=== PATIENT | female | born 1980 | race Caucasian/White ===

== ENCOUNTER 2021-11-16 05:46 | Emergency (ER) | payer OTHER ==
[~2021-11-16 05:46] MED LIST: AMOXICILLIN500 MG PO; ATARAX25 MG PO; CLARITIN10 MG PO; CLEOCIN300 MG PO; DEXAMETHASONE 2M2 MG PO; ELAVIL50 MG PO; FLEXERIL10 MG PO; FLOVENT HF120 PUFFS/; GABAPENTIN300 MG PO; INDERAL20 MG PO; LAMICTAL100 MG PO; LATUDA40 MG PO; LIDODERM 5%1 EACH TOP; LYRICA 50MG CAP50 MG PO; METFORMIN HCL500 MG PO; OS-CAL500 MG PO; PAMELOR25 MG PO; POWER C PO; SINGULAIR10 MG PO; SKELAXIN800 MG PO; SYMBICORT 80-10.2 GM INH; TESSALON PERLE100 MG PO; TOPAMAX50 MG PO; VENTOLIN HFA IN18 GM INH; VITAMIN B-121000 MC1 PO; VITAMIN B-121000 MC1 SC; VITAMIN D250000 UNIT PO; VITAMIN D31 ML PO; VOLTAREN **OUT75 MG PO; ZANTAC150 MG PO; ZOFRAN4 MG PO; ZOVIRAX200 MG PO; ZYRTEC10 M3 PO
[2021-11-16 06:21] LABS: BASOPHIL 0.7 % (0-2); EOSINOPHIL 1.1 % (0-5); HCT 43.1 % (37.0-47.0); HGB 14.7 g/dl (12.5-16.0); LYMPHOCYTE 33.4 % (15-48); MCH 31.3 pg (25.0-31.0); MCHC 34.1 g/dL (32.0-36.0); MCV 91.7 fL (78.0-100.0); MONOCYTE 6.6 % (0-12); MPV 10.9 fL (6.0-9.5); NEUTROPHIL 57.9 % (41-80); NRBC 0; PLT 243 K/uL (150-400); RDW 13.2 % (11.5-14.0); WBC 8.8 K/uL (4.0-10.5)
[2021-11-16 06:35] LABS: ALBUMIN 3.9 g/dL (3.4-5.0); BILIRUBIN - TOTAL 0.3 mg/dL (0.2-1.0); BUN/CREAT RATIO (CALC) 15.5 RATIO; CREATININE 0.71 mg/dL (0.51-0.95); GLOBULIN (CALCULATION) 3.8 g/dL; POTASSIUM 3.9 mmol/L (3.5-5.1); TOTAL PROTEIN 7.7 g/dL (6.4-8.2)
[2021-11-16 06:44] LABS: INR 0.97 (0.9-1.2); PROTHROMBIN TIME 12.3 SECONDS (11.8-13.4); PTT 28.1 SECONDS (24.4-34.7)
[2021-11-16 07:30] LABS: CORONAVIRUS 2019 SARS-COV-2 NEGATIVE (NEGATIVE); INFLUENZA A NAA NEGATIVE (NEGATIVE)
== END 2021-11-16 09:28 | disposition home or self-care (01) ==
LOC: FER 05:46
PROVIDERS: Emergency Medicine
DX: R07.89 Other chest pain (principal); E66.9 Obesity, unspecified; Z20.822 Contact with and (suspected) exposure to COVID-19; Z28.310 Unvaccinated for COVID-19; Z88.5 Allergy status to narcotic agent; Z88.8 Allergy status to other drugs, medicaments and biological substances
CPT/HCPCS: 36415; 71045; 80053; 84484; 85025; 85610; 85730; 93005; U0002